=== PATIENT | female | born 2005 | race Caucasian/White ===

== ENCOUNTER 2025-10-24 17:48 | Emergency (ER) | payer SELFPAY ==
[2025-10-24 17:49] VITALS: BP 149/105; PULSE 94; RESP 16; TEMP 35.7; O2SAT 100; BMI 20.1
--- NOTE | 2025-10-24 18:21 | US_ITS ---
PROCEDURE: TRANSVAGINAL W/PREG US 10/24/2025 REASON FOR EXAM: ? ECTOPIC (R) TECHNIQUE: Procedure Code: USTVAGP Modality: US Procedure: TRANSVAGINAL W/PREG US COMPARISON: None available. FINDINGS Anteverted uterus appears normal in size and smooth in contour, measuring 7.8 x 5.8 x 3.7 cm. No discrete uterine myoma. Endometrial stripe is within normal limits measuring 0.3 cm. There is trace nonspecific fluid at the upper uterine cavity, but no discrete gestational sac or sac-like structure. The right ovary measures 5.6 x 4.9 x 4.3 cm, and contains a complex hemorrhagic cyst measuring 4.4 x 4.3 x 3 cm. The left ovary measures 3.1 x 2.7 x 2 cm, and appears normal. Blood flow is preserved on color Doppler. No adnexal mass or significant free pelvic fluid is seen. US/Transvaginal w/Preg US IMPRESSION: Trace nonspecific fluid within the upper uterine cavity. No discrete intrauter ine gestational sac at this time to confirm an IUP. There is a complex hemorrhagic right ovarian cyst measuring 4.4 cm. No f indings suspicious for ectopic , although this cannot be entirely excluded at this time. Correlation with serial serum b eta HCG levels and short-term follow-up sonography suggested. Reading Location: [id number]
--- NOTE | 2025-10-24 18:22 | EDS_ITS ---
HPI HPI - Female History of Present Illness Chief Complaint: Informant: patient and spouse/S.O. Narrative Narrative: 20-year-old female presenting to the emergency room and concern for ectopic . Patient states that she was about 5 weeks . On the Thursday she began to have some brown vaginal bleeding that started to mix with some bright red blood on Thursday. Yesterday she had increased bleeding and passage of tissue. She went to see her primary care doctor today and they ordered a ultrasound. She states it was a trans abdominal ultrasound and was read as a complex cyst of the right ovary. States her doctor advised her to come to emergency out of concern for possible ectopic. This is her first . She notes some pain on the right side of her pelvis. No reported fevers. PFSH PFSH Medical History Anxiety Allergy/AdvReac Type Severity Reaction Status Date / Time No Known Allergies Allergy Verified 10/24/25 17:53 Social History Smoking Status: Never smoker ROS ROS ED Constitutional Constitutional ED: Denies chills or weight loss Eyes Eyes: Denies change in vision or diplopia ENT ENT ED: Denies ear pain, rhinorrhea or sore throat Cardiovascular Cardiovascular: Denies chest pain, orthopnea, palpitations or racing heartbeat Respiratory/Chest Respiratory/Chest: Denies cough, dyspnea or orthopnea Gastrointestinal Gastrointestinal: Reports abdominal pain; Denies diarrhea, nausea or vomiting Genitourinary Genitourinary ED: Reports other Details: See history of present illness ; Denies dysuria, hematuria or urinary frequency Musculoskeletal Musculoskeletal: Denies arthralgias or myalgias Integumentary Denies abscess or rash Neurologic Neurologic: Denies headache(s) or weakness Psychiatric Psychiatric: Denies anxiety, depression, suicidal ideation or suicidal thoughts Endocrine Endocrinology: Denies polydipsia, polyphagia or polyuria Allergic/Immunologic Allergic/Immunologic ED: Denies mouth swelling, tongue swelling or urticaria EXAM Physical Exam Const Vital Signs: 10/24/25 17:49 10/24/25 19:00 Temperature 96.3 F L Temperature Source Temporal Pulse Rate 94 75 Respiratory Rate 16 16 Blood Pressure 149/105 H 113/76 Blood Pressure Mean 119 88 Pulse Ox 100 100 Oxygen Delivery Method Room Air Room Air Positive well nourished and well developed General Appearance ED: well developed HEENT Reports normocephalic, head/scalp atraumatic and moist mucous membranes Eyes PERRL and EOMs intact bilaterally Neck no lymphadenopathy, supple and no JVD Resp normal respiratory effort and clear to auscultation bilaterally Cardio regular rate, regular rhythm and no murmurs GI non-distended and no masses Auscultation: normoactive bowel sounds Palpation: soft and tender other (Tender to palpation in the low right quadrant) Back/Spine no CVA tenderness and normal ROM Extremity normal to inspection General Extremety ED: Negative for edema General Extremity: Negative for edema Neuro oriented x3 and CN's II-XII intact bilaterally Sensorium / Orientation: alert Motor Exam: strength 5/5 throughout Psych mental status grossly normal Mood & Affect: Negative for depressed or tearful Skin no rashes or lesions noted and no wounds MDM MDM MDM Narrative Medical decision making narrative: Differential diagnosis includes ovarian cyst heterotopic incomplete miscarriage retained products anemia Patient's white count 4.9 hemoglobin 14.1 platelet count of 113. She is a positive. Quantitative hCG is 73. Transvaginal ultrasound was obtained this was read by radiology reviewed by myself. There is a hemorrhagic cyst on the right ovary. Please see radiologist read for full details. I spoke with Dr. Fajardo on-call for obstetrics tonight. We are let the patient discharged home and have her repeat quantitative hCG in 48 hours. She should follow-up with obstetrics after that. Patient and her significant other were updated with the plan and the above findings. They are comfortable with this plan going forth. History & Record Review Discussion w/independent historian: Patient Lab Data Attestation: I reviewed the patient's lab results. Labs: Laboratory Results - last 24 hr 10/24/25 18:46 WBC 4.9 RBC 4.71 Hgb 14.1 Hct 41.3 MCV 87.7 MCH 29.9 MCHC 34.1 RDW Std Deviation 37.3 RDW Coeff of Amber 11.6 Plt Count 113 L MPV 11.8 Immature Gran % (Auto) 0.200 Neut % (Auto) 67.2 Lymph % (Auto) 24.5 Sampson % (Auto) 5.9 Eos % (Auto) 1.6 Baso % (Auto) 0.6 Absolute Neuts (auto) 3.3 Absolute Lymphs (auto) 1.21 Nucleated RBC % 0 HCG, Quant 73 H Blood Type A POSITIVE Radiography Diagnostic Testing: Clinical Impression(s) from Imaging Studies Obstetrics Ultrasound 10/24/25 18:21 IMPRESSION: Trace nonspecific fluid within the upper uterine cavity. No discrete intrauterine gestational sac at this time to confirm an IUP. There is a complex hemorrhagic right ovarian cyst measuring 4.4 cm. No findings suspicious for ectopic , although this cannot be entirely excluded at this time. Correlation with serial serum beta HCG levels and short-term follow-up sonography suggested. Reading Location: [facility] Management Discussion w/another healthcare provider: Mechanical Design Engineer (Dr. Fajardo (obstetrics)) Discharge Plan Triage Chief Complaint: ED Provider: Trenton Florian Dx/Rx/DC Orders Clinical Impression: Miscarriage, Hemorrhagic cyst of right ovary Instructions: ED Ovarian Cyst Other Ambulatory Orders: HCG BETA-SUBUNIT QUANT. (Routine) Timeframe: 2 Days Facility: [facility] - Location: Laboratory Ordered By: Dr. Trenton Florian Primary Care Provider: Ginette Gant Referrals: Olga Lidia Ralph MD [Med Staff - Active Staff, Obstetrics-Gynecology (OBGYN)] - 3-5 Days Ginette Gant, [employer] [Primary Care Provider, Family Practice] Activity Restrictions/Additional Instructions: As we discussed it appears that you have had a miscarriage. You also have a hemorrhagic cyst on the right ovary. You need to have your hCG level drawn in 48 hours. I have written an outpatient order for that for you to come to the hospital and have done. I would recommend calling Dr. Fajardo's office and to be seen later this week in follow-up. Print Language: Ukrainian Disposition Disposition: Home, Self Care
[2025-10-24 18:58] LABS: Hematocrit 41.3 % (37-47); Hemoglobin 14.1 g/dL (12.0-15.0); Immature Granulocytes Count 0.010 X10^3/uL (0.0-0.0); Mean Corp Hgb Conc 34.1 g/dL (32-36); Mean Corpuscular Volume 87.7 fL (81-99); Mean Platelet Vol. 11.8 fl (6.2-12.0); NRBC Flagged by Analyzer 0 % (0-5); Platelet Count 113 K/mm3 (150-450); RBC Distribution Width CV 11.6 % (11.6-14.6); RBC Distribution Width SD 37.3 fl (35.1-43.9); Red Blood Count 4.71 M/mm3 (4.2-5.4); White Blood Count 4.9 K/mm3 (4.4-11.0)
[2025-10-24 19:00] VITALS: BP 113/76; PULSE 75; RESP 16; O2SAT 100
[2025-10-24 19:31] LABS: hCG Titer Quant., Serum 73 mIU/mL (<9 non-preg)
[2025-10-24 20:45] VITALS: BP 116/76; PULSE 75; RESP 18; TEMP 36.7; O2SAT 100
== END 2025-10-24 20:45 | disposition home or self-care (01) ==
PROVIDERS: Emergency Provider Emergency Medicine; PCP Nurse Practitioner Family; Visit Provider Emergency Medicine
DX: O03.9 Complete or unspecified spontaneous abortion without complication (principal); Z3A.01 Less than 8 weeks gestation of pregnancy; N83.201 Unspecified ovarian cyst, right side; O34.81 Maternal care for other abnormalities of pelvic organs, first trimester
CPT/HCPCS: 76817; 84702; 85025; 86900; 86901; 99283; A4216